=== PATIENT | female | born 1980 | race Two or more races ===

== ENCOUNTER 2017-04-20 05:54 | Inpatient (IN) | payer MEDICAID ==
[~2017-04-20] VITALS: Ht 154.9 cm; Wt 85.4 kg
[~2017-04-20 05:54] MED LIST: METO50TA7 PO
[2017-04-20] MEDS ORDERED: ONDANSETRON ODT 4 MG TAB PO ONE ×2 (06:03→06:15)
[2017-04-20 09:08] LABS: Basophils # (auto) 0.1 uL; Basophils % (auto) 0.6 % (0.0-2.0); Eosinophils # (auto) 0.1 uL; Eosinophils % (auto) 1.1 % (0.0-7.0); Hematocrit 41.3 % (36.0-46.0); Lymphocytes # (auto) 1.4 uL; Lymphocytes % (auto) 15.6 % (10.0-50.0); Mean Corpuscular Hemoglobin 27.2 pg (28.0-32.0); Mean Corpuscular Hgb Conc. 31.5 g/dL (32.0-36.0); Mean Corpuscular Volume 86.3 fL (80.0-100.0); Monocytes # (auto) 0.8 uL; Monocytes % (auto) 8.3 % (0.0-12.0); Neutrophils # (auto) 6.8 uL; Neutrophils % (auto) 74.4 % (37.0-80.0); Platelet Count (auto) 466 10^3/uL (140-450); Red Blood Cells 4.78 10^6/uL (4.0-5.20); Red Cell Distribution Width 15.3 % (11.8-14.3); White Blood Cell 9.1 10^3/uL (4.4-10.8)
[2017-04-20 09:22] LABS: Albumin 3.8 g/dL (3.4-5.0); BUN/Creatinine Ratio 18.6; Bilirubin, Total 0.2 mg/dL (0.2-1.0); Calcium 8.8 mg/dL (8.5-10.1); Magnesium 2.6 mg/dL (1.6-2.6); Potassium 4.2 mmol/L (3.5-5.1); Total Protein 8.2 g/dL (6.4-8.2)
[2017-04-20 09:30] LABS: Beta HCG, Quantitative < 1 mlU/mL (1-3); Thyroid Stimulating Hormone 1.64 uIU/mL (0.358-3.74)
[2017-04-20] MEDS ORDERED: SODIUM CHLORIDE 0.9% 1,000 ML IV ONE (10:39)
[2017-04-20] MEDS ORDERED: ASPirin 81 mg TAB PO ONE (10:45)
[2017-04-20] MEDS ORDERED: ENOXAPARIN SOD 100 MG/1 ML SYRINGE SC ONE (10:45)
[2017-04-20] MEDS ORDERED: NITROGLYCERIN 0.4 MG SL TAB SL ONE (10:45)
[2017-04-20] MEDS ORDERED: PROMETHAZINE HCL 25 MG/ML 1ML IV PRN (11:00)
[2017-04-20] MEDS ORDERED: LORazepam 0.5 MG TAB PO PRN (11:00)
[2017-04-20] MEDS ORDERED: LACTULOSE 20Gm/30ML SOLN PO PRN (11:00)
[2017-04-20] MEDS ORDERED: ACETAMINOPHEN 500 MG TAB PO PRN (11:00)
[2017-04-20] MEDS ORDERED: NITROGLYCERIN 0.4 MG SL TAB SL PRN (11:00)
[2017-04-20] MEDS ORDERED: TEMAZEPAM 15 MG CAP PO PRN (11:00)
[2017-04-20] MEDS ORDERED: MORPHINE SULF INJ 2 MG/ML SYRINGE 1ML IV PRN ×2 (11:00)
[2017-04-20 11:43] LABS: INR 0.93 (0.9-1.15); Partial Thromboplastin Time 26.7 sec (22.64-33.71); Prothrombin Time 10.1 sec (9.37-12.3)
[2017-04-20 12:09] LABS: CRP High Sensitivity 0.22 mg/dL (< 0.3)
[2017-04-20] MEDS: SODIUM CHLORIDE 0.9% 1,000 ML IV SCH ×3 (12:35→23:57)
[2017-04-20] MEDS: ATORVASTATIN 20 MG TAB PO SCH (22:45)
[2017-04-21 08:37] LABS: Basophils # (auto) 0 uL; Basophils % (auto) 0.6 % (0.0-2.0); Eosinophils # (auto) 0.2 uL; Eosinophils % (auto) 2.6 % (0.0-7.0); Hemoglobin 11.7 g/dL (12.2-16.2); Lymphocytes # (auto) 1.9 uL; Lymphocytes % (auto) 25.4 % (10.0-50.0); Mean Corpuscular Hgb Conc. 32.6 g/dL (32.0-36.0); Mean Corpuscular Volume 85.8 fL (80.0-100.0); Monocytes # (auto) 0.6 uL; Monocytes % (auto) 7.6 % (0.0-12.0); Neutrophils # (auto) 4.7 uL; Neutrophils % (auto) 63.8 % (37.0-80.0); Platelet Count (auto) 353 10^3/uL (140-450); Red Blood Cells 4.19 10^6/uL (4.0-5.20); Red Cell Distribution Width 15.6 % (11.8-14.3); White Blood Cell 7.4 10^3/uL (4.4-10.8)
[2017-04-21 09:00] LABS: Albumin 3.1 g/dL (3.4-5.0); BUN/Creatinine Ratio 18.2; Bilirubin, Total 0.3 mg/dL (0.2-1.0); Calcium 7.9 mg/dL (8.5-10.1); Potassium 3.8 mmol/L (3.5-5.1); Total Protein 6.7 g/dL (6.4-8.2)
[2017-04-21] MEDS: PANTOPRAZOLE 40 MG TAB PO SCH (12:43)
[2017-04-21] MEDS: ASPirin 81 mg TAB PO SCH (12:43)
[2017-04-21] MEDS: NITROGLYCERIN 0.2MG/HR TOPICAL PATCH TD SCH (12:44)
[2017-04-21] MEDS: METOPROLOL SUCCINATE XL 50 MG TAB PO SCH (12:44)
[2017-04-21] MEDS: SODIUM CHLORIDE 0.9% 1,000 ML IV SCH ×2 (12:44→20:33)
[2017-04-21] MEDS: ENOXAPARIN SOD 40 MG/0.4 ML SYRINGE SC SCH (12:44)
[2017-04-21 20:00] VITALS: BP 113/78
[2017-04-21] MEDS: HYDROcodone-ACET 5/325MG TAB PO PRN (20:32)
[2017-04-21] MEDS: ATORVASTATIN 20 MG TAB PO SCH (21:06)
[2017-04-21 22:00] VITALS: BP 113/78
[2017-04-22] MEDS: SODIUM CHLORIDE 0.9% 1,000 ML IV SCH ×2 (02:54→10:17)
[2017-04-22 05:00] VITALS: BP 93/59
[2017-04-22 08:25] VITALS: BP 125/89
[2017-04-22] MEDS: PANTOPRAZOLE 40 MG TAB PO SCH (10:15)
[2017-04-22] MEDS: ASPirin 81 mg TAB PO SCH (10:15)
[2017-04-22] MEDS: METOPROLOL SUCCINATE XL 50 MG TAB PO SCH (10:16)
[2017-04-22] MEDS: ENOXAPARIN SOD 40 MG/0.4 ML SYRINGE SC SCH (10:16)
[2017-04-22] MEDS: NITROGLYCERIN 0.2MG/HR TOPICAL PATCH TD SCH (10:17)
[2017-04-22 13:17] VITALS: BP 118/75
[2017-04-22 14:36] VITALS: BP 125/82
[2017-04-22] MEDS ORDERED: SERTRALINE HCL 50 MG TAB PO SCH (15:30)
[2017-04-22 16:00] VITALS: BP 102/62
[2017-04-22] MEDS: HYDROcodone-ACET 5/325MG TAB PO PRN (16:14)
== END 2017-04-22 18:30 | disposition home or self-care (01) | DRG 198 ==
LOC: ER 05:54 → TELE 05:55 → TELE-CENTR 04-21 19:18
PROVIDERS: ADMIT Internal Medicine; ATTEND Internal Medicine
DX: I24.9 Acute ischemic heart disease, unspecified (principal); I95.9 Hypotension, unspecified; I11.9 Hypertensive heart disease without heart failure; E11.9 Type 2 diabetes mellitus without complications; E66.9 Obesity, unspecified; F41.9 Anxiety disorder, unspecified; I47.1 Supraventricular tachycardia; I48.91 Unspecified atrial fibrillation; Z90.721 Acquired absence of ovaries, unilateral; Z87.442 Personal history of urinary calculi; Z82.49 Family history of ischemic heart disease and other diseases of the circulatory system; Z79.899 Other long term (current) drug therapy; Z83.3 Family history of diabetes mellitus; Z80.42 Family history of malignant neoplasm of prostate; Z68.35 Body mass index [BMI] 35.0-35.9, adult
CPT/HCPCS: 36415; 71046; 76705; 78452; 80053; 80061; 82150; 82550; 83690; 83735; 84443; 84484; 84702; 85025; 85379; 85610; 85652; 85730; 86141; 93005; 93017; 93306; 96372; Q0162

== ENCOUNTER 2023-05-23 05:42 | Inpatient (IN) | payer MEDICAID ==
[~2023-05-23] VITALS: Ht 154.9 cm; Wt 81.3 kg
[~2023-05-23 05:42] MED LIST changes: +METO-6 PO; -METO50TA7 PO
[2023-05-23] MEDS: ADENOSINE 6 MG/2 ML INJ IV ONE ×3 (06:13→06:23)
[2023-05-23 06:26] VITALS: PULSE 90; RESP 17; O2SAT 97
[2023-05-23] MEDS: SODIUM CHLORIDE 0.9% 500 ML IV ONE (06:40)
[2023-05-23 07:13] LABS: Anion Gap 12 (5-15); Carbon Dioxide 19 mmol/L (20-30); Chloride 107 mmol/L (98-107); Sodium 138 mmol/L (136-145)
[2023-05-23 07:14] LABS: Calcium 8.7 mg/dL (8.7-10.4)
[2023-05-23 07:19] LABS: BUN/Creatinine Ratio 12.8 (10.0-20.0); Blood Urea Nitrogen 12 mg/dL (9-23); Glucose 191 mg/dL (74-106); Magnesium 2.3 mg/dL (1.6-2.6)
[2023-05-23 07:49] VITALS: PULSE 86; RESP 17; O2SAT 96
[2023-05-23 08:13] LABS: Basophils # (auto) 0.1 10 ^3/uL (0-0.2); Eosinophils # (auto) 0.4 10 ^3/uL (0-0.8); Eosinophils % (auto) 3.8 % (0.0-7.0); Lymphocytes # (auto) 4.6 10 ^3/uL (0.4-5.4); Lymphocytes % (auto) 43.1 % (10.0-50.0); Mean Corpuscular Hemoglobin 21.4 pg (28.0-32.0); Mean Corpuscular Hgb Conc. 29.5 g/dL (32.0-36.0); Mean Corpuscular Volume 72.7 fL (80.0-100.0); Monocytes # (auto) 0.7 10 ^3/uL (0-1.3); Monocytes % (auto) 6.6 % (0.0-12.0); Neutrophils # (auto) 4.9 10 ^3/uL (1.6-8.6); Neutrophils % (auto) 45.5 % (37.0-80.0); Nucleated Red Blood Cells % 0.4 %; Red Blood Cells 4.67 10^6/uL (4.0-5.20); Red Cell Distribution Width 19.8 % (11.8-14.3); White Blood Cell 10.7 10^3/uL (4.4-10.8)
[2023-05-23 08:46] LABS: Ovalocytes MODERATE; Platelet Estimate Increased; Stomatocytes Few
[2023-05-23 08:53] LABS: Urine Bacteria FEW /hpf (None Seen); Urine Blood 3+ /uL (Negative); Urine Clarity Clear (Clear); Urine Color Colorless (Yellow); Urine Protein, UAD 1+ (Negative); Urine Specific Gravity 1.006 (1.001-1.035); Urine Urobilinogen Normal (Negative); Urine WBC 8 /hpf (0 - 5); Urine pH 7.5 (5.0-8.0)
[2023-05-23] MEDS: ASPirin 81 mg TAB PO ONE (09:09)
[2023-05-23] MEDS ORDERED: NITROGLYCERIN 0.4 MG SL TAB SL PRN (10:45)
[2023-05-23] MEDS ORDERED: MORPHINE SULFATE INJ 2 MG/ml SYRG IV PRN (10:45)
[2023-05-23] MEDS ORDERED: DOCUSATE SOD 100 MG CAP PO PRN (10:45)
[2023-05-23] MEDS ORDERED: ONDANSETRON HCL 4 MG/2 ML VIAL IV PRN (10:45)
[2023-05-23] MEDS: METOPROLOL TARTRATE 25 MG TAB PO SCH (11:38)
[2023-05-23] MEDS: SODIUM CHLOR 0.9% PF (SALINE LOCK) 10ML VIAL/SYR IV SCH (14:56)
[2023-05-23 16:09] LABS: INR 1.04 (0.9-1.15); Partial Thromboplastin Time 25.7 SEC (24.5-34.5); Prothrombin Time 10.9 sec (9.3-11.8)
[2023-05-23] MEDS: HYDROcodone-ACET 5/325MG TAB PO PRN (18:30)
[2023-05-23] MEDS: CLOPIDOGREL 300 MG TAB PO ONE (18:52)
[2023-05-23] MEDS: ATORVASTATIN 20 MG TAB PO ONE (18:52)
[2023-05-23 19:30] VITALS: PULSE 88; RESP 20; O2SAT 97
[2023-05-23] MEDS: ENOXAPARIN SOD 80 MG/0.8ML SYRINGE SC SCH (20:32)
[2023-05-23 22:43] VITALS: BP 119/80; PULSE 95; PULSE 98; RESP 18; TEMP 98.2; O2SAT 95
[2023-05-23] MEDS ORDERED: FERR1TAB36 PO (23:08)
[2023-05-24] VITALS (10 sets, daily range): BP systolic 101–131; BP diastolic 64–73; PULSE 74–111; RESP 16–96; TEMP 97.2–98.2; O2SAT 94–98
[2023-05-24] MEDS: SODIUM CHLOR 0.9% PF (SALINE LOCK) 10ML VIAL/SYR IV SCH (00:25)
[2023-05-24 07:06] LABS: Triglycerides 151 mg/dL (< 150)
[2023-05-24 07:07] LABS: Cholesterol 141 mg/dL (< 200); LDL Cholesterol 93 mg/dL (< 100)
[2023-05-24 07:08] LABS: HDL Cholesterol 37 mg/dL (40-59)
[2023-05-24] MEDS ORDERED: ENOXAPARIN SOD 40 MG/0.4 ML SYRINGE SC SCH (10:00)
[2023-05-24] MEDS: CLOPIDOGREL BISULFATE 75 MG TAB PO SCH (10:00)
[2023-05-24] MEDS: ATORVASTATIN 20 MG TAB PO SCH (10:00)
[2023-05-24] MEDS: ASPirin 81 mg TAB PO SCH (10:00)
[2023-05-24 10:19] LABS: Alanine Aminotransferase 38 U/L (7-40); Alkaline Phosphatase 66 U/L (46-116); Anion Gap 8 (5-15); Aspartate Aminotransferase 27 U/L (13-40); Blood Urea Nitrogen 6 mg/dL (9-23); Calcium 8.7 mg/dL (8.5-10.1); Carbon Dioxide 22 mmol/L (20-30); Chloride 109 mmol/L (98-107); Glucose 81 mg/dL (74-106); Potassium 3.7 mmol/L (3.5-5.1); Sodium 139 mmol/L (136-145)
[2023-05-24 10:20] LABS: Albumin 3.9 g/dL (3.2-4.8); Bilirubin, Total 0.3 mg/dL (0.2-1.0); Total Protein 6.1 g/dL (5.7-8.2)
[2023-05-24 10:24] LABS: Nucleated Red Blood Cells % 0.1 %; White Blood Cell 8.8 10^3/uL (4.4-10.8)
[2023-05-24 10:25] LABS: Basophils # (auto) 0.1 10 ^3/uL (0-0.2); Basophils % (auto) 0.7 % (0.0-2.0); Eosinophils # (auto) 0.4 10 ^3/uL (0-0.8); Eosinophils % (auto) 4.2 % (0.0-7.0); Hematocrit 29.3 % (36.0-46.0); Hemoglobin 8.5 g/dL (12.2-16.2); Lymphocytes # (auto) 2.2 10 ^3/uL (0.4-5.4); Lymphocytes % (auto) 24.5 % (10.0-50.0); Mean Corpuscular Hgb Conc. 29.1 g/dL (32.0-36.0); Mean Corpuscular Volume 71.9 fL (80.0-100.0); Monocytes # (auto) 0.7 10 ^3/uL (0-1.3); Monocytes % (auto) 8.4 % (0.0-12.0); Neutrophils # (auto) 5.5 10 ^3/uL (1.6-8.6); Neutrophils % (auto) 62.2 % (37.0-80.0); Red Blood Cells 4.08 10^6/uL (4.0-5.20); Red Cell Distribution Width 19.4 % (11.8-14.3)
[2023-05-24] MEDS: HYDROmorphone HCL 2 MG/ML VL/or syr IV PRN (12:18)
[2023-05-24] MEDS: SODIUM CHL 0.9% 0 ML ONE (15:44)
[2023-05-24] MEDS: ANGIOMAX 250 MG VIAL IV ONE (15:44)
[2023-05-24] MEDS: IODIXANOL 320MG/ML 100ML BTL IV ONE (15:57)
[2023-05-24] MEDS: HEPARIN SODIUM (PORCINE) 5000 UNITS/ML 1ML VIAL ONE (15:58)
[2023-05-24] MEDS: LIDOCAINE 2%HCL (LOCAL ANESTH.) INJ 20ML MDV ONE ×2 (15:58→16:00)
[2023-05-24] MEDS: VERAPAMIL 2.5MG/ML INJ 2ML VIAL IV ONE (15:58)
[2023-05-24] MEDS: MIDAZOLAM HCL 2MG/2ML 2ml VIAL (1mg/ml) ONE (15:58)
[2023-05-24] MEDS: fentaNYL CITRATE 100 MCG/2 ML VL ONE (15:59)
[2023-05-24] MEDS: METOPROLOL TARTRATE 25 MG TAB PO SCH (21:41)
[2023-05-25 05:00] VITALS: BP 111/74; PULSE 79; RESP 18; TEMP 98.1; O2SAT 93
[2023-05-25] MEDS: ACETAMINOPHEN 325 MG TAB PO PRN (05:18)
[2023-05-25 06:21] LABS: Anion Gap 7 (5-15); Calcium 8.6 mg/dL (8.7-10.4); Carbon Dioxide 23 mmol/L (20-30); Chloride 108 mmol/L (98-107); Potassium 3.5 mmol/L (3.5-5.1); Sodium 138 mmol/L (136-145)
[2023-05-25 06:27] LABS: BUN/Creatinine Ratio 13.6 (10.0-20.0); Blood Urea Nitrogen 8 mg/dL (9-23); Glucose 94 mg/dL (74-106); Magnesium 1.9 mg/dL (1.6-2.6)
[2023-05-25 06:29] LABS: % Iron Saturation 4.5 % (15-50)
[2023-05-25 08:00] VITALS: BP 115/74; PULSE 65; PULSE 77; PULSE 79; RESP 16; RESP 18; TEMP 98.1; O2SAT 96; O2SAT 97
[2023-05-25] MEDS ORDERED: METO25TA36 PO (09:27)
[2023-05-25] MEDS ORDERED: METO-6 PO (09:27)
[2023-05-25] MEDS ORDERED: ENOXAPARIN SOD 80 MG/0.8ML SYRINGE SC SCH (10:00)
[2023-05-25 12:31] VITALS: BP 117/71; PULSE 65; RESP 16; TEMP 98.2; O2SAT 97
== END 2023-05-25 13:53 | disposition home or self-care (01) | DRG 192 ==
LOC: ER 05:42 → TELE 10:43 → TELE-WESTW 22:32
PROVIDERS: ADMIT Internal Medicine; ATTEND Nurse Practitioner Acute Care
PROC: 5A2204Z Restoration of Cardiac Rhythm, Single (ICD-10-PCS; 2023-05-23)
PROC: 4A023N7 Measurement of Cardiac Sampling and Pressure, Left Heart, Percutaneous Approach (ICD-10-PCS; principal; 2023-05-24)
PROC: B211YZZ Fluoroscopy of Multiple Coronary Arteries using Other Contrast (ICD-10-PCS; 2023-05-24)
PROC: B215YZZ Fluoroscopy of Left Heart using Other Contrast (ICD-10-PCS; 2023-05-24)
DX: I47.10 Supraventricular tachycardia, unspecified (principal); I21.A1 Myocardial infarction type 2; D50.9 Iron deficiency anemia, unspecified; E66.9 Obesity, unspecified; Z68.33 Body mass index [BMI] 33.0-33.9, adult; E78.5 Hyperlipidemia, unspecified; I48.91 Unspecified atrial fibrillation; I10 Essential (primary) hypertension; Z79.899 Other long term (current) drug therapy; Z79.02 Long term (current) use of antithrombotics/antiplatelets; Z87.442 Personal history of urinary calculi; Z80.42 Family history of malignant neoplasm of prostate; Z82.49 Family history of ischemic heart disease and other diseases of the circulatory system; Z83.3 Family history of diabetes mellitus
CPT/HCPCS: 36415; 71045; 80048; 80053; 80061; 81001; 83036; 83540; 83550; 83735; 83880; 84443; 84484; 84702; 85025; 85610; 85730; 86850; 86900; 86901; 92960; 93005; 93306; 93458; 96361; 96372; 96374; 99152; 99291; G0378; J0153; J2250; Q9967